=== PATIENT | male | born 1995 | race Caucasian/White ===

== ENCOUNTER 2020-04-20 17:52 | Emergency (ER) | payer BC ==
[2020-04-20] MEDS ORDERED: Acetaminophen/HYDROcodone 325-5 MG Tab PO ONE (18:15)
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
--- NOTE | 2020-04-21 07:50 | CR ---
Left knee: 4 views of the left knee were obtained. Comparison: No previous study. Osseous: Small bony densities are seen off the anterior tibial tuberosity. Findings most likely represent tear at the attachment of the anterior cruciate ligament. No additional bony abnormality is appreciated. Soft tissues: Joint effusion is present. Impression: 1. Findings are suspicious for small avulsion fractures off the anterior tibial tuberosity. 2. Joint effusion. Diagnostic code #3
== END 2020-04-20 19:15 | disposition home or self-care (01) ==
LOC: JD.ED 17:52
DX: S82.152A Displaced fracture of left tibial tuberosity, initial encounter for closed fracture (principal); Z91.013 Allergy to seafood; Z91.010 Allergy to peanuts; Z91.018 Allergy to other foods; V86.56XA Driver of dirt bike or motor/cross bike injured in nontraffic accident, initial encounter
CPT/HCPCS: 73564-26-LT; 73564-LT; 99283; 99284; A9270-GY